=== PATIENT | female | born 2000 | race Caucasian/White ===

== ENCOUNTER 2019-05-26 17:17 | Outpatient (CLI) | payer OTHER ==
[~2019-05-26] VITALS: Ht 162.6 cm; Wt 70.5 kg
== END 2019-05-26 18:03 | disposition home or self-care (01) ==
LOC: LDOP 17:17
PROVIDERS: ATTEND Obstetrics & Gynecology
DX: O26.893 Other specified pregnancy related conditions, third trimester (principal); R10.9 Unspecified abdominal pain; Z88.3 Allergy status to other anti-infective agents; Z3A.38 38 weeks gestation of pregnancy
CPT/HCPCS: 59025; 99201; G0463